=== PATIENT | female | born 1950 | race Caucasian/White ===

== ENCOUNTER → 2017-05-02 | Outpatient (CLI) | payer OTHER, MEDICARE ==
[~2017-05-02] MED LIST: IMITREX100 MG PO; LEVOTHYROXINE88 MCG PO; MOBIC7.5 MG PO; REGLAN10 MG PO; TORADOL10 MG PO
== END | disposition home or self-care (01) ==
LOC: EKG 13:23
DX: I06.1 Rheumatic aortic insufficiency (principal); I05.1 Rheumatic mitral insufficiency; I07.1 Rheumatic tricuspid insufficiency; I09.89 Other specified rheumatic heart diseases; I87.2 Venous insufficiency (chronic) (peripheral)
CPT/HCPCS: 93306

== ENCOUNTER 2017-05-03 10:46 | Emergency (ER) | payer OTHER, MEDICARE ==
[~2017-05-03] VITALS: Ht 165.1 cm; Wt 61.8 kg
[~2017-05-03 10:46] MED LIST changes: -REGLAN10 MG PO; -TORADOL10 MG PO
[2017-05-03 12:37] LABS: HEMOGLOBIN 14.3 G/DL (11.9-15.5); MCH 31.3 PG (29.0-34.0); MCV 91.9 FL (83-99); PLATELET COUNT 248 K/uL (156-360); RBC DIS.WIDTH-CV 12.3 % (11.8-14.6); RBC DIS.WIDTH-SD 41.1 % (39-53); RED BLOOD COUNT 4.57 M/uL (3.80-5.20); WHITE BLOOD COUNT 7.1 K/uL (4.1-10.2)
[2017-05-03 12:49] LABS: CHLORIDE 103 mEq/L (99-109); SODIUM 142 mEq/L (136-147)
[2017-05-03 12:51] LABS: GLUCOSE 118 mg/dL (70-99)
[2017-05-03 12:55] LABS: CREATININE 0.8 mg/dL (0.6-1.3); GFR ESTIMATE (CALCULATED) > 59 mL/min/
[2017-05-03 12:56] LABS: UREA NITROGEN (BUN) 8 mg/dL (9-23)
[2017-05-03 12:57] LABS: TROP-I INTERPRETATION NEGATIVE; TROPONIN-I < 0.01 ng/mL (0.0-0.30)
[2017-05-03] MEDS ORDERED: TORADOL10 MG PO (13:55)
[2017-05-03] MEDS ORDERED: REGLAN10 MG PO (13:55)
[2017-05-03 14:05] VITALS: BP 130/70
== END 2017-05-03 14:11 | disposition home or self-care (01) ==
LOC: EME 10:46
PROVIDERS: Physician Assistant
DX: R07.9 Chest pain, unspecified (principal); G43.909 Migraine, unspecified, not intractable, without status migrainosus; T39.8X5A Adverse effect of other nonopioid analgesics and antipyretics, not elsewhere classified, initial encounter; E03.9 Hypothyroidism, unspecified; Z87.891 Personal history of nicotine dependence; Z88.5 Allergy status to narcotic agent
CPT/HCPCS: 80048; 84484; 85027; 93005; 99281; 99285; J1100; J1200; J1885; J2765; J7040